=== PATIENT | male | born 1985 | race Caucasian/White ===

== ENCOUNTER → 2021-09-30 14:21 | Outpatient (CLI) | payer OTHER, SELFPAY ==
--- NOTE | ~2021-09-30 | US_ITS ---
US soft tissue groin LT 09/30/2021 14:40 Indication: Unilateral inguinal hernia Procedure: High-resolution ultrasound of the left groin Comparison: No prior studies for comparison. Findings: In the area of palpable concern in the left inguinal region there is evidence of inguinal h ernia with intrusion of bowel. No extraluminal fluid collections or masses. Impression: 1: Left inguinal hernia in the area of palpable concern. Reviewed, dictated and finalized at location A. GE MASTER Impression: 1: Left inguinal hernia in the area of palpable concern.
== END ==
PROVIDERS: PCP Student in an Organized Health Care Education/Training Program; Visit Provider Student in an Organized Health Care Education/Training Program
DX: K40.90 Unilateral inguinal hernia, without obstruction or gangrene, not specified as recurrent (principal)
CPT/HCPCS: 76882

== ENCOUNTER → 2022-07-28 15:24 | Outpatient (CLI) | payer OTHER, SELFPAY ==
--- NOTE | ~2022-07-28 | MR_ITS ---
EXAMINATION: MR lumbar spine wo con DATE: 07/28/2022 16:04 INDICATION: Lumbar radiculopathy. Low back pain radiating down the left lower limb. TECHNIQUE: Magnetic resonance imaging (MRI) of the lumbar spine was performed without intravenous con trast. Sequences included sagittal T2-weighted FSE, sagittal T2-weighted FS FSE, sagittal T1-weighted FSE, and axial T2-weighted FSE. COMPARISON: None FINDINGS: There is 4 mm retrolisthesis of L5 on S1. Vertebral body heights are normal. There is moder ately decreased disc height at L5-S1 with endplate remodeling. The distal spinal cord signal intensit y is normal. The conus medullaris is at L1-L2. The following disc levels are specifically discussed: L1-L2: The disc does not extend beyond the endplate margin. There is no facet joint osteoarthritis. T here is no neural foraminal stenosis. There is no central canal stenosis. L2-L3: The disc does not extend beyond the endplate margin. There is no facet joint osteoarthritis. T here is no neural foraminal stenosis. There is no central canal stenosis. L3-L4: The disc does not extend beyond the endplate margin. There is mild left facet joint osteoarthr itis. There is no neural foraminal stenosis. There is no central canal stenosis. L4-L5: The disc is mildly bulging. There is mild bilateral facet joint osteoarthritis. There is mild bilateral neural foraminal stenosis. There is no central canal stenosis. L5-S1: There is a left subarticular zone extrusion with mass effect on left S1 nerve root in left lat eral recess. There is mild bilateral facet joint osteoarthritis. There is mild right and moderate lef t neural foraminal stenosis. There is mild central canal stenosis. There is moderate stenosis of left lateral recess. IMPRESSION: 1. Moderate spondylosis at L5-S1. Reviewed, dictated and finalized at location A.
== END ==
PROVIDERS: PCP Student in an Organized Health Care Education/Training Program; Visit Provider Student in an Organized Health Care Education/Training Program
DX: M54.16 Radiculopathy, lumbar region (principal); M47.897 Other spondylosis, lumbosacral region
CPT/HCPCS: 72148